=== PATIENT | female | born 1965 | race Caucasian/White ===

== ENCOUNTER 2017-03-22 12:06 | Emergency (ER) | payer OTHER ==
[2017-03-22 12:10] VITALS: TEMP 98.2
--- NOTE | 2017-03-22 12:31 | EDPHY ---
H & P Stated Complaint: presyncopal hiking/nauseated/dizzy HPI/ROS: Chief complaint: Dizzy History of present illness: This is a 51-year-old female who presents to the emergency department feeling dizzy. Patient was in her usual state of health, she was out hiking. She felt well. She states all of a sudden she started to feel dizzy, she felt like she was going to pass out. She developed associated nausea but did not vomit. She had associated trouble breathing. Symptoms have been persistent. Again she denies precipitating factors. She denies alleviating factors. She denies other associated signs or symptoms including no chest pain. Patient does note a couple of weeks ago she had 2 episodes of passing out while at dinner. She was seen by EMS and had low blood pressure, she did not go to the hospital. Review of systems: A 10 point review of systems was obtained and other than described above was negative - Personal History LMP (Females 10-55): Post Menopausal Current Tetanus/Diphtheria Vaccine: Unsure - Medical/Surgical History Hx Asthma: No Hx Chronic Respiratory Disease: No Hx Diabetes: No Hx Cardiac Disease: No Hx Renal Disease: No Hx Cirrhosis: No Hx Alcoholism: No Hx HIV/AIDS: No Hx Splenectomy or Spleen Trauma: No Other PMH: Denies significant history. Patient had an extensive cardiac evaluation approximately 5 years ago in [facility] which included what she describes as a cardiac catheterization which was normal - Social History Smoking Status: Never smoked - Physical Exam Exam: General Appearance: Alert, no distress. Eyes: Pupils equal and round no pallor or injection. ENT, Mouth: Mucous membranes moist. Respiratory: There are no retractions, lungs are clear to auscultation. Cardiovascular: Regular rate and rhythm. Gastrointestinal: Abdomen is soft and nontender, no masses, bowel sounds normal. Neurological: Alert and oriented x4. Cranial nerves 2-12 grossly intact. Strength and sensation intact and symmetrical. Skin: Warm and dry, no rashes. Musculoskeletal: Neck is supple nontender. Extremities are symmetrical, full range of motion. Psychiatric: Patient is oriented X 3, there is no agitation. Constitutional: Initial Vital Signs Temperature (C) 36.8 C 03/22/17 12:07 Heart Rate 106 H 03/22/17 12:07 Respiratory Rate 22 H 03/22/17 12:07 Blood Pressure 148/92 H 03/22/17 12:07 O2 Sat (%) 99 03/22/17 12:07 O2 Delivery Mode Room Air Allergies/Adverse Reactions: No Known Allergies Allergy (Unverified 03/22/17 12:07) Home Medications: Medication Instructions Recorded ALPRAZolam [Xanax 0.5 MG (*)] 0.5 mg PO TID #6 tab 03/22/17 Medical Decision Making ED Course/Re-evaluation: Patient is discussed with my secondary supervising physician Dr. Connor Damon. Patient presents to the emergency department with dizziness, feeling she is going to pass out, nausea without vomiting and some trouble breathing. She is nontoxic. Physical exam is benign. Blood studies are unremarkable. EKG unremarkable. Patient is IV hydrated and treated with Zofran, she reports complete resolution of symptoms. Given the recent episodes of syncope a few weeks ago and the new symptoms today we have recommended admission to the hospital for further evaluation and care. She has declined. I have asked her to stay so we can perform a 4 hour troponin, she has declined this as well. Patient would like to be discharged. She does believe this is a panic attack. I have discussed it is not clear as to the cause of her symptoms and that is why we want to further evaluate her. She would like a prescription for an antianxiety medicine that she can take until she sees her doctor. Patient is discharged home. Home care is discussed. Strict return precautions are given. Patient voiced understanding and agreement with plan. Differential Diagnosis: Included but not limited to hypovolemia, electrolyte disturbances, cardiac disturbances, pulmonary embolism, vertigo, panic attack - Data Points Laboratory Results: Laboratory Results 03/22/17 12:25 03/22/17 12:25 03/22/17 03/22/17 03/22/17 12:25 12:25 12:25 WBC 6.09 10^3/uL 10^3/uL (3.80-9.50) RBC 5.26 10^6/uL 10^6/uL (4.18-5.33) Hgb 15.9 g/dL g/dL (12.6-16.3) Hct 45.6 % % (38.0-47.0) MCV 86.7 fL fL (81.5-99.8) MCH 30.2 pg pg (27.9-34.1) MCHC 34.9 g/dL g/dL (32.4-36.7) RDW 12.5 % % (11.5-15.2) Plt Count 250 10^3/uL 10^3/uL (150-400) MPV 11.1 fL fL (8.7-11.7) Neut % (Auto) 72.0 % % (39.3-74.2) Lymph % (Auto) 20.2 % % (15.0-45.0) [place] % (Auto) 6.1 % % (4.5-13.0) Eos % (Auto) 0.5 % L % (0.6-7.6) Baso % (Auto) 0.7 % % (0.3-1.7) Nucleat RBC Rel Count 0.0 % % (0.0-0.2) Absolute Neuts (auto) 4.39 10^3/uL 10^3/uL (1.70-6.50) Absolute Lymphs (auto) 1.23 10^3/uL 10^3/uL (1.00-3.00) Absolute Monos (auto) 0.37 10^3/uL 10^3/uL (0.30-0.80) Absolute Eos (auto) 0.03 10^3/uL 10^3/uL (0.03-0.40) Absolute Basos (auto) 0.04 10^3/uL 10^3/uL (0.02-0.10) Absolute Nucleated RBC 0.00 10^3/uL 10^3/uL (0-0.01) Immature Gran % 0.5 % % (0.0-1.1) Immature Gran # 0.03 10^3/uL 10^3/uL (0.00-0.10) D-Dimer < 0.27 ug/mLFEU ug/mLFEU (0.00-0.50) Sodium 141 mEq/L mEq/L (134-144) Potassium 3.8 mEq/L mEq/L (3.5-5.2) Chloride 109 mEq/L mEq/L (97-110) Carbon Dioxide 18 mEq/l L mEq/l (22-31) Anion Gap 14 mEq/L mEq/L (8-16) BUN 20 mg/dL mg/dL (7-23) Creatinine 0.7 mg/dL mg/dL (0.6-1.0) Estimated GFR > 60 Glucose 123 mg/dL H mg/dL (70-100) Calcium 10.2 mg/dL mg/dL (8.5-10.4) Troponin I < 0.012 ng/mL ng/mL (0-0.034) Departure - Departure Disposition: Home, Routine, Self-Care Clinical Impression: Dizzy Condition: Good Instructions: Near Syncope (ED) Additional Instructions: Follow-up with your primary care doctor for continued evaluation and care If symptoms return or new symptoms develop return to the emergency room for recheck You were offered admission to the hospital for further evaluation and care, you declined You were offered repeat blood studies to evaluate for a potential involving process, you declined Referrals: NONE *PRIMARY CARE P,. [Primary Care Provider] - As per Instructions [facility],. [Clinic] - As per Instructions Prescriptions: ALPRAZolam [Xanax 0.5 MG (*)] 0.5 mg PO TID #6 tab
--- NOTE | 2017-03-22 12:37 | CPEKG ---
Heart Rate: 74 RR Interval: 811 P-R Interval: 152 QRSD Interval: 80 QT Interval: 400 QTC Interval: 444 P [place]: 31 QRS [place]: 62 T Wave [place]: 44 EKG Severity - NORMAL ECG - EKG Impression: SINUS RHYTHM Electronically Signed By: Isabel Gaxiola 23-Mar-2017 15:22:39
[2017-03-22 12:43] LABS: % IMMATURE GRANULYOCYTES 0.5 % (0.0-1.1); ABSOLUTE IMMATURE GRANULOCYTES 0.03 10^3/uL (0.00-0.10); ADD DIFF? NO; ADD MORPH? NO; ADD SCAN? NO; ATYPICAL LYMPHOCYTE FLAG 0 (0-99); FRAGMENT RBC FLAG 0 (0-99); HEMATOCRIT 45.6 % (38.0-47.0); HEMOGLOBIN 15.9 g/dL (12.6-16.3); LEFT SHIFT FLG 0 (0-99); LIPEMIA HEMOLYSIS FLAG 90 (0-99); MEAN CELL HEMOGLOBIN 30.2 pg (27.9-34.1); MEAN CELL HEMOGLOBIN CONCENTR. 34.9 g/dL (32.4-36.7); MEAN CELL VOLUME 86.7 fL (81.5-99.8); MEAN PLATELET VOLUME 11.1 fL (8.7-11.7); PLATELET CLUMPS FLAG 10 (0-99); PLATELET COUNT 250 10^3/uL (150-400); RED BLOOD CELL COUNT 5.26 10^6/uL (4.18-5.33); RED CELL DISTRIBUTION WIDTH 12.5 % (11.5-15.2)
[2017-03-22] MEDS ORDERED: ONDANSETRON 4 MG/2 ML VIAL ONE (12:50)
[2017-03-22 12:59] LABS: ANION GAP 14 mEq/L (8-16); CALCIUM 10.2 mg/dL (8.5-10.4); CARBON DIOXIDE 18 mEq/l (22-31); CHLORIDE 109 mEq/L (97-110); CREATININE 0.7 mg/dL (0.6-1.0); GLOMERULAR FILTRATION RATE > 60; GLUCOSE 123 mg/dL (70-100); POTASSIUM 3.8 mEq/L (3.5-5.2); SODIUM 141 mEq/L (134-144)
[2017-03-22 13:11] LABS: TROPONIN I < 0.012 ng/mL (0-0.034)
[2017-03-22 14:05] VITALS: BP 136/85; PULSE 72; RESP 16; O2SAT 96
== END 2017-03-22 14:09 | disposition home or self-care (01) ==
DX: R42 Dizziness and giddiness (principal)
CPT/HCPCS: J2405